=== PATIENT | female | born 1960 | race Caucasian/White ===

== ENCOUNTER 2020-11-23 09:52 | Outpatient (CLI) | payer OTHER, SELFPAY ==
--- NOTE | 2020-11-23 09:58 | MM_ITS ---
WS: [id number] BILATERAL DIGITAL SCREENING MAMMOGRAPHY WITH CAD CLINICAL INFORMATION: SCREENING HISTORY: Screening mammogram. No current complaints. COMPARISON: TECHNIQUE: Bilateral CC and MLO views. FINDINGS: Scattered fibroglandular densities bilaterally. Stable incidental intramammary lymph nodes. No suspic ious focal mass, asymmetry, calcifications, or architectural distortion. No evidence of malignancy. MM/[place] [id number] IMPRESSION: BI-RADS: 2-Benign FOLLOW UP: 1 Year Follow-up Recommend return to annual screening mammography.
== END 2020-11-23 09:53 | disposition home or self-care (01) ==
PROVIDERS: PCP Family Medicine; Visit Provider Family Medicine
DX: Z12.31 Encounter for screening mammogram for malignant neoplasm of breast (principal)
CPT/HCPCS: 77067

== ENCOUNTER 2021-12-26 16:43 | Outpatient (CLI) | payer OTHER, SELFPAY ==
--- NOTE | 2021-12-26 17:11 | XR_ITS ---
WS: [id number] XR hip LT 2-3V wo/w pel* [id number] REASON FOR EXAM: HIP PAIN, LEFT FINDINGS: No fracture or focal bone lesion. Minimal narrowing of the left hip joint space with mild subchondral sclerosis of the acetabulum with small marginal osteophyte formation. Amorphous calcifications adjacent to the greater trochanter. XR/XR hip LT 2-3V wo/w pel* [id number] IMPRESSION: Calcific tendinitis, hydroxyapatite deposition disease versus calcific trochant pamela bursitis.
== END 2021-12-26 16:44 | disposition home or self-care (01) ==
PROVIDERS: PCP Family Medicine; Visit Provider Family Medicine
DX: M25.552 Pain in left hip (principal); M65.28 Calcific tendinitis, other site
CPT/HCPCS: 73502

== ENCOUNTER 2022-04-04 11:36 | Outpatient (CLI) | payer OTHER, SELFPAY ==
--- NOTE | 2022-04-04 11:53 | XR_ITS ---
WS: [id number] XR shoulder RT min 2V* [id number] REASON FOR EXAM: Right shoulder pain FINDINGS: The acromioclavicular joint is relatively well preserved. There is subchondral sclerosis and cystic c hange with marginal osteophytosis. Glenohumeral joint is intact and relatively well-preserved. Mild subchondral sclerosis in the greater biceps tuberosity. XR/XR shoulder RT min 2V* [id number] IMPRESSION: Mild to moderate osteoarthritis in the acromioclavicular joint. Mild rotator cuff tendon arthropathy.
== END 2022-04-04 11:37 | disposition home or self-care (01) ==
LOC: RAD 11:39
PROVIDERS: PCP Family Medicine; Visit Provider Family Medicine
DX: M19.011 Primary osteoarthritis, right shoulder (principal)
CPT/HCPCS: 73030

== ENCOUNTER → 2023-09-10 10:16 | Outpatient (BNVA) | payer OTHER, SELFPAY | PROVIDERS: PCP Family Medicine; Visit Provider Family Medicine | DX: Z51.81 Encounter for therapeutic drug level monitoring (principal); Z13.220 Encounter for screening for lipoid disorders; Z13.1 Encounter for screening for diabetes mellitus; E55.9 Vitamin D deficiency, unspecified; E03.9 Hypothyroidism, unspecified | CPT/HCPCS: 80053; 80061; 82306; 83036; 84443; 85025 ==

== ENCOUNTER 2023-09-28 07:40 | Outpatient (CLI) | payer OTHER, SELFPAY ==
--- NOTE | 2023-09-28 08:00 | MR_ITS ---
WS: [id number] MRI LEFT KNEE HISTORY: Left knee pain COMPARISON: LEFT knee 08/14/2023 Anterior cruciate ligament: Intact. Posterior cruciate ligament: Intact. Medial collateral ligament: MCL is being displaced from the joint line are partially extruded meniscu s and synovial thickening. Posterior lateral corner structures: Mild increased signal in the periphery of the posterior horn. No definite tear. Medial menisci: Complex tear in the posterior horn. Radial and horizontal tears are identified within the posterior horn. Anterior horn normal. Lateral meniscus: Mild intrasubstance degeneration in the posterior horn. Extensor mechanism: Distal quadriceps tendon and patellar tendons are intact. Fluid and soft tissue: Moderate size complex suprapatellar joint effusion. Heterogeneous material in signal within the joint effusion may be from synovitis or prior hemorrhage due to the history of montse ma. Very large complex Cardenas's cyst. Osseous and articular structures: Patellofemoral compartment: Mild narrowing. No edema. Medial compartment: Mild narrowing of the medial compartment. Mild thinning and fissuring of the cart ilage. There is heterogeneous soft tissue along the medial joint line extending above and below the j oint line and displacing the MCL. This may be related to the prior recent trauma and resolving hemorr sharda or synovitis. Lateral compartment: Mild narrowing with thinning and fissuring of the cartilage. No fracture and no marrow edema. IMPRESSION: 1. Large complex suprapatellar joint effusion with edema surrounding the knee. 2. Very large complex Cardenas's cyst. 3. Complex tear posterior horn medial meniscus. Both radial and horizontal tears are present. 4. Mild displacement of the MCL from the joint line. Displacement is secondary to a very partially e xtruded meniscus with adjacent complex synovial thickening. There is heterogeneous synovial thickenin g may be posttraumatic resolving hematoma. 5. Mild tricompartmental osteoarthritis and fissuring of the cartilage.
== END 2023-09-28 07:41 | disposition home or self-care (01) ==
LOC: RAD 07:42
PROVIDERS: PCP Family Medicine; Visit Provider Family Medicine
DX: M25.562 Pain in left knee (principal)
CPT/HCPCS: 73721

== ENCOUNTER 2023-10-01 14:26 | Outpatient (CLI) | payer OTHER, SELFPAY ==
--- NOTE | 2023-10-01 14:30 | MM_ITS ---
WS: [id number] BILATERAL SCREENING DIGITAL TOMOSYNTHESIS MAMMOGRAM WITH CAD HISTORY: Screening COMPARISON: 11/23/2020 and 12/05/2018 Bilateral CC and MLO views with tomosynthesis and synthetic mammography submitted. Computer aided det ection analyzed. Breast composition: There are scattered areas of fibroglandular density. No suspicious masses, microc alcifications or architectural distortion. IMPRESSION: MM/[place] [id number] BI-RADS: 2-Benign FOLLOW UP: 1 Year Follow-up
== END 2023-10-01 14:27 | disposition home or self-care (01) ==
LOC: RAD 14:27
PROVIDERS: PCP Family Medicine; Visit Provider Family Medicine
DX: Z12.31 Encounter for screening mammogram for malignant neoplasm of breast (principal)
CPT/HCPCS: 77063; 77067

== ENCOUNTER 2023-11-07 11:58 | Outpatient (CLI) | payer OTHER, SELFPAY ==
--- NOTE | 2023-11-07 12:15 | MR_ITS ---
WS: [id number] MRI LEFT SHOULDER NONCONTRAST TECHNIQUE: Sagittal T2, coronal T1, T2 and proton density imaging. Axial gradient PDE imaging. CLINICAL INFORMATION: Shoulder pain left COMPARISON: None. FINDINGS: Moderate degenerative arthritis at the AC joint with mild edema. Slight subacromial spurring. Mild na rrowing of the subacromial space. Slight impingement distal supraspinatus. Trace subacromial subdelto id fluid. Acromion slightly impinges the distal supraspinatus with tendinopathy. No high-grade tears. Mild chronic thinning of the distal supraspinatus. Normal infraspinatus. Normal teres minor. Subscapu yenni is normal. Normal biceps tendon in the bicipital groove. Moderate to advanced degenerative narr owing at the glenohumeral articulation. Degenerative fraying of the glenoid labrum. Biceps labral anc hor appears intact. Subchondral cystic changes involving the greater tuberosity. MR/MR shoulder LT wo con* [id number] IMPRESSION: 1. Moderate degenerative arthritis AC joint with slight impingement on the dis john supraspinatus. 2. Mild tendinopathy distal supraspinatus. No high-grade rotator cuff tears. 3. Normal biceps tendon in the bicipital groove. 4. Intra-articular biceps tendon appears intact. 5. No other acute findings.
--- NOTE | 2023-11-07 13:00 | MR_ITS ---
WS: [id number] MRI RIGHT SHOULDER NONCONTRAST TECHNIQUE: Sagittal T2, coronal T1, T2 and proton density imaging. Axial gradient PDE imaging. CLINICAL INFORMATION: Right shoulder pain COMPARISON: None. FINDINGS: Advanced degenerative arthritis AC joint with subacromial spurring. Small amount of subacromial subde ltoid fluid. Chronic thinning of the distal supraspinatus with tendinopathy. Normal infraspinatus. No rmal teres minor. Normal subscapularis tendon. Normal biceps tendon in the bicipital groove. Advanced degenerative narrowing of the glenohumeral articulation. Glenoid labrum appears grossly intact with degenerative fraying. Biceps labral anchor appears intact. MR/MR shoulder RT wo con* [id number] IMPRESSION: 1. Advanced degenerative arthritis AC joint with subacromial spurring. Subacro mial and subdeltoid fluid. 2. Impingement distal supraspinatus with tendinopathy. Chronic thinning of the distal supraspinatus. 3. Rotator cuff is otherwise normal in appearance. 4. Normal biceps tendon in the bicipital groove. 5. Advanced degenerative narrowing at the glenohumeral articulation.
== END 2023-11-07 11:59 | disposition home or self-care (01) ==
LOC: RAD 11:58
PROVIDERS: PCP Family Medicine; Visit Provider Family Medicine
DX: M25.511 Pain in right shoulder (principal); M25.512 Pain in left shoulder; M19.012 Primary osteoarthritis, left shoulder; M19.011 Primary osteoarthritis, right shoulder
CPT/HCPCS: 73221

== ENCOUNTER → 2023-11-29 09:52 | Outpatient (BNVA) | payer OTHER, SELFPAY | PROVIDERS: PCP Family Medicine; Referring Provider Family Medicine; Visit Provider Student in an Organized Health Care Education/Training Program | DX: S83.242A Other tear of medial meniscus, current injury, left knee, initial encounter (principal); M71.22 Synovial cyst of popliteal space [Baker], left knee; M65.862 Other synovitis and tenosynovitis, left lower leg | CPT/HCPCS: 73560; 73565 ==

== ENCOUNTER 2023-12-26 13:25 | Day surgery (SDC) | payer OTHER, SELFPAY ==
[2023-12-26] VITALS (10 sets, daily range): BP systolic 135–158; BP diastolic 66–95; PULSE 61–74; RESP 12–22; TEMP 36.1–36.6; O2SAT 91–100; BMI 28.8
--- NOTE | 2023-12-26 13:55 | W.PM.OPSUD ---
Surgery/Procedure H&P Update DATE OF PROCEDURE: December 26, 2023 DATE H&P PERFORMED: 11/29/23 H&P UPDATE INFORMATION: I have reviewed H&P completed within last 30 days, I have examined patient prior to procedure and No changes to prior documentation PREOP DIAGNOSIS: Left knee medial meniscus tear, synovitis PRIMARY INDICATION FOR PROCEDURE: Left knee medial meniscus tear, synovitis PLANNED PROCEDURE: Operation Date: 12/26/23 15:00 Proposed Procedures p Knee Arthroscopy Knee Arthroscopy w/ Medial Menisectomy vs repair(Left) - DO samy Oshea Synovectomy(Left) - Carlos Cody DO
[2023-12-26] MEDS: acetaminophen 1,000 MG/100 ML PIGGYBACK 400 MG IV (14:01)
[2023-12-26] MEDS: ketorolac 30 mg/mL INJ IVP (14:01)
[2023-12-26] MEDS: sodium chloride 0.9% 1,000 ML 30 ML IV (14:01)
[2023-12-26] MEDS: scopolamine 1.5 Patch 1 PATCH TRANSDERMA (14:03)
--- NOTE | 2023-12-26 14:03 | ANES.PREANE2 ---
Pre-Anesthetic Assessment Height/Weight: Height 1.73 m Weight 86.183 kg Temp Pulse Resp BP Pulse Ox O2 Del Method 97.6 F 74 17 135/95 99 Room Air 12/26/23 13:39 12/26/23 13:39 12/26/23 13:39 12/26/23 13:39 12/26/23 13:39 12/26/23 13:40 Preop Diagnosis: Left knee medial meniscus tear, synovitis Operation Date: 12/26/23 15:00 Proposed Procedures p Knee Arthroscopy Knee Arthroscopy w/ Medial Menisectomy vs repair(Left) - Carlos Cody, DO s Synovectomy(Left) - Carlos Cody, DO Familial anesthetic complications: None Was Beta Aryan taken within 24 hours: N/A Was Clonidine taken within 24 hours: N/A Last intake: Intake Last Liquid Date 12/26/23 Last Liquid Time 08:30 Last Solid Date 12/25/23 Last Solid Time 19:00 Social No alcohol and No tobacco Exam alert, oriented x 3, clear to auscultation bilaterally and regular rate & rhythm Airway Mallampati: Class I Dentition: partials CV/HEM Hypertension GI Gastroesophageal Reflux Disease Anesthetic Plan ASA status: 2 Anesthesia: General Risk of > 500 ml blood loss (7ml/kg in children): No Medications/Allergies Home Medications Medication Instructions Recorded Confirmed Last Taken Type albuterol sulfate 90 mcg/actuation See Rx Instructions .Route 04/10/22 12/25/23 Unknown Rx aerosol inhaler .COMPLEX #8.5 grams fluticasone 500 mcg-salmeterol 50 1 inh inhalation BID #60 ea 12/13/22 12/25/23 Unknown Rx mcg/dose blistr powdr for inhalation (Advair Diskus) epinephrine 0.3 mg/0.3 mL 0.3 mg (0.3 mL) IM ONCE PRN 02/12/23 12/25/23 Unknown Rx injection, auto-injector anaphylaxis #2 ea multivitamin 1 tab PO DAILY 09/10/23 12/25/23 12/25/23 History levocetirizine 5 mg tablet 5 mg PO DAILY 12/25/23 12/25/23 12/25/23 History lisinopril 20 20 - 25 tab PO DAILY 12/25/23 12/25/23 12/25/23 History mg-hydrochlorothiazide 25 mg tablet omeprazole 40 mg capsule,delayed 20 mg PO DAILY 12/25/23 12/25/23 12/25/23 History release aspirin 81 mg capsule 81 mg PO BID 14 days #28 caps 12/26/23 Unknown Rx hydrocodone 5 mg-acetaminophen 325 1 tab PO Q6H PRN pain 5 days #20 12/26/23 Unknown Rx mg tablet tabs ondansetron 4 mg disintegrating 4 mg PO Q8H PRN nausea and 12/26/23 Unknown Rx tablet vomiting 3 days #9 tabs Allergies Allergy/AdvReac Type Severity Reaction Status Date / Time penicillin V Allergy Severe ALGY-Rash Verified 12/26/23 13:34 Sulfa (Sulfonamide Allergy Mild Unknown Verified 12/26/23 13:34 Antibiotics) chlorhexidine Allergy ALGY-Rash Verified 12/26/23 13:34 isopropyl alcohol Allergy ALGY-Rash Verified 12/26/23 13:34 [From ChloraPrep Clear] [facility] Anesthesia Medical History Osteopenia Environmental allergies [place], bee sting Surgical History History of pilonidal cyst History of appendectomy H/O section S/P surgery on nasal septum Family History Mother Congenital malformation of kidney CLL (chronic lymphocytic leukemia) Glaucoma COPD (chronic obstructive pulmonary disease) Father Hypertension Congestive heart failure (CHF) h/o [place] Brother Graves disease Social History Smoking and tobacco/nicotine status: former use of tobacco/nicotine Alcohol intake: current Alcohol intake frequency: few times a week Substance/Drug Use: never 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
[2023-12-26] MEDS: clindamycin 900 MG/50 ML PREMIX 100 MG IV (14:20)
[2023-12-26] MEDS: lidocaine-epi 1% 20 mL INJ 40 ML INJECTION (14:50)
--- NOTE | 2023-12-26 15:40 | P.OP_ITS ---
Operative Report Date of procedure: December 26, 2023 Surgeon: Carlos Cody DO Swimming Pool Installer And Servicer: Aniceto Cody PA-C: PA was necessary for assistance in this case with leg positioning assistance with instrumentation and wound closure and dressing application. Procedure: Preoperative diagnosis : left knee medial meniscus tear, synovitis Post-op?diagnosis: Left?knee?medial meniscus tear Left?knee?extensive synovitis Procedure done: Left?knee?diagnostic and surgical arthroscopy partial medial meniscectomy Left?knee?diagnostic and surgical arthroscopy with extensive synovectomy of the medial lateral and patellofemoral compartments Surgeon: Carlos Cody DO Estimated blood loss: 5 Tourniquet: No tourniquet was used IV fluids: See anesthesia record Complications: None Findings: See?operative report narrative Condition: stable Disposition: same day Brief History: Patient is a 63-year-old female with Left?knee?pain.? Patient has failed conservative treatment who has been worked up for Left??knee?pain in the outpatient setting. MRI findings consistent with tear of the medial meniscus. talked in the office about treatment?options patient would like to proceed with a Left?knee?diagnostic and surgical arthroscopy with partial medial meniscectomy vs repair.? Patient understand the ins and outs of the procedure the risk benefits complication alternatives to treatment?options.? Understanding risk of surgery pt agree to proceed with surgical intervention.? Understanding this and patient agree to proceed with surgical intervention all questions answered. Procedure: Patient seen and evaluated in the preoperative holding area.? Consent was reviewed and signed with patient.? Correct extremity was then marked.? Patient seen evaluated Anesthesia Department once cleared for surgery patient was taken back to the?operative suite.? Patient was transported onto the OR table in supine position.? All bony prominences well-padded patient was appropriate secured to the bed.? Once appropriately anesthetized a nonsterile tourniquet was applied to the Left thigh.? The Left lower extremity was then prepped and draped in standard orthopedic fashion.? Final timeout performed.? Patient received appropriate preoperative antibiotics. Patient received local anesthetic of lidocaine with epinephrine into the joint as well as around the portal sites.? No tourniquet was inflated A standard 2 portal vertical incision diagnostic and surgical arthroscopy of the Left?knee?was performed in standard fashion.? Small stab incision made in the inferolateral portal introduced trocar and arthroscope into the suprapatellar pouch.? Suprapatellar pouch was subsequently visualized and found to have significant synovitis but no loose bodies.? Patient had noticeable significant inflamed infrapatellar fat pad and thickening hypertrophic within the patellofemoral compartment.? ?The medial gutter was free of loose bodies I then introduced the arthroscope into the medial compartment.? Within the medial compartment I then established my inferior medial working portal utilizing spinal needle outside in technique.? Once established I then visualized our articular cartilage of the medial compartment with a valgus stress.? 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 Next I inspected the meniscus.? With an arthroscopic probe was utilized to visual? all aspects of the meniscus.? Meniscal root was found to be intact.? Meniscus was found to be torn at the body to posterior horn junction.? I then subsequently introduced a basket forceps as well as arthroscopic shaver to perform a partial medial meniscectomy to stable meniscal tissue and then utilized a thermal wand to anneal the edges.? Next, I then performed a synovectomy of the medial compartment.? No chondroplasty was performed.? This completed medial compartment work. Next a introduced the arthroscope to the intercondylar notch.? PCL and ACL were intact. patient had significant thickening of the infrapatellar fat pad spanning into the medial and lateral compartments.? I then performed an extensive synovectomy with the arthroscopic shaver of the patellofemoral medial and lateral compartments as well as the intercondylar notch. Next I introduced the arthroscope into the lateral compartment the lateral compartment was found to have grade 1-2 chondromalacia.? Lateral meniscus was found to be intact.? The root was intact.? Given the grade 1-2 chondromalacia there is no unstable cartilage pieces to perform chondroplasty.? This completed my work of the lateral compartment and then performed a synovectomy of the lateral compartment.? Next of the arthroscope was placed into the lateral gutter and this was free of loose bodies.? Finally I reintroduced the arthroscope into the patellofemoral compartment.? The patellofemoral was found to have grade 1-2 chondromalacia of the patellofemoral compartment.? At this point I utilized arthroscopic shaver as well as thermal wand to perform extensive synovectomy of the patellofemoral compartment. This completed my work of the patellofemoral space.? I then switch my portal sites to the medial working portal.? Completed the rest of my synovectomy and the rest of my examination arthroscopy was normal. All fluid was suctioned from the joint.? ?All instruments were withdrawn.? Portal sites were closed with interrupted nylon suture.? portal sites were then covered with with Xeroform 4 x 4's ABD Curlex and Charlie wrap.? Patient was then subsequently awakened from anesthesia and taken to PACU in stable condition. Disposition: Patient taken to PACU in stable condition recovering well.? Will receive appropriate discharge structure as well as pain medication postoperatively as well as? DVT prophylaxis.we will have patient follow-up with us in the office in 2 weeks.? We will weightbearing as tolerated to the Left lower extremity.? Patient understands and agrees with current plan.? All questions answered.
--- NOTE | 2023-12-26 15:41 | P.BOP_ITS ---
Date of Procedure: [December 26, 2023] Surgeon: [Dr. Cody DO] Attending Ambulatory Care(s): [Aniceto Cody PA-C] Procedure(s) performed: [Right knee diagnostic and surgical arthroscopy Partial medial meniscectomy Extensive synovectomy] Findings of the procedure(s): [Right knee synovitis and partial medial meniscus tear] Estimated blood loss: [5 mL] Specimen(s) removed: [N/A] Post-operative diagnosis: [Right knee synovitis and partial medial meniscus tear]
--- NOTE | 2023-12-26 15:45 | PM.PACU ---
PACU note Narrative: Patient is a 63-year-old female that just underwent left knee diagnostic and surgical arthroscopy. Pt transferred to PACU in stable condition. Dressing is dry. pt is awake and alert. pt can wiggle toes and plantarflex and dorsiflex foot. pt able to perform straight leg raise, Femoral nerve intact. Distal pulses are palpable toes are warm and well-perfused. Cap refill is normal and under 2 seconds. Sensation to foot is intact. Pain is controlled. Exam: awake Disposition: discharged
[2023-12-26] MEDS: ondansetron 2 mg/ML SDV 2 mL 4 MG IVP (16:31)
[2023-12-26] MEDS: diphenhydrAMINE 50 mg/mL SDV 1mL 12.5 MG IVP (16:49)
--- NOTE | 2023-12-26 17:10 | ANE.PACU2 ---
Inpatient post-anesthesia follow up: Airway intact: Yes Vital signs: Temperature 97.8 F Pulse Rate 61 Respiratory Rate 17 Blood Pressure 154/74 Pulse Oximetry 91 Oxygen Delivery Me thod Room Air Oxygen Flow Rate 8 Fraction of Inspir ed Oxygen Hydration adequate: Yes Nausea and vomiting: No Pain level: 1 Mental status: Baseline
== END 2023-12-26 17:10 | disposition home or self-care (01) ==
PROVIDERS: PCP Family Medicine; Visit Provider Student in an Organized Health Care Education/Training Program
PROC: (CPT 29870; principal; 2023-12-26 14:50)
PROC: (CPT 29876; 2023-12-26 14:50)
DX: S83.242A Other tear of medial meniscus, current injury, left knee, initial encounter (principal); X58.XXXA Exposure to other specified factors, initial encounter; M65.9 Synovitis and tenosynovitis, unspecified; I10 Essential (primary) hypertension; K21.9 Gastro-esophageal reflux disease without esophagitis; Z79.82 Long term (current) use of aspirin; Z87.891 Personal history of nicotine dependence
CPT/HCPCS: 29876; 29881; J0131; J1200; J1885; J2250; J2405; J2704; J3010; J3490; J7030

== ENCOUNTER → 2024-03-04 15:15 | Outpatient (BNVA) | payer OTHER, SELFPAY | PROVIDERS: PCP Family Medicine; Visit Provider Student in an Organized Health Care Education/Training Program | DX: M75.42 Impingement syndrome of left shoulder; M19.012 Primary osteoarthritis, left shoulder | CPT/HCPCS: 73030 ==

== ENCOUNTER → 2024-10-17 09:12 | Outpatient (BNVA) | payer OTHER, SELFPAY | PROVIDERS: PCP Family Medicine; Visit Provider Physician Assistant | DX: S62.102A Fracture of unspecified carpal bone, left wrist, initial encounter for closed fracture (principal); S52.502A Unspecified fracture of the lower end of left radius, initial encounter for closed fracture; S89.92XA Unspecified injury of left lower leg, initial encounter; X58.XXXA Exposure to other specified factors, initial encounter; M25.562 Pain in left knee; Z98.890 Other specified postprocedural states; Y93.68 Activity, volleyball (beach) (court) | CPT/HCPCS: 73110; 73560; 73565 ==

== ENCOUNTER 2024-10-17 10:09 | Outpatient (CLI) | payer OTHER, SELFPAY | END 2024-10-17 10:10 | disposition home or self-care (01) | LOC: SPT 10:10 | PROVIDERS: PCP Family Medicine; Visit Provider Physician Assistant | DX: Z46.89 Encounter for fitting and adjustment of other specified devices (principal); S52.502D Unspecified fracture of the lower end of left radius, subsequent encounter for closed fracture with routine healing; X58.XXXD Exposure to other specified factors, subsequent encounter | CPT/HCPCS: L3982 ==

== ENCOUNTER 2024-10-20 06:54 | Outpatient (CLI) | payer OTHER, SELFPAY ==
--- NOTE | 2024-10-20 07:15 | MR_ITS ---
WS: [id number] MRI LEFT KNEE NONCONTRAST TECHNIQUE: Axial PD, coronal PD fat sat, coronal PD, sagittal PD, and sagittal PD fat-sat images obtained. CLINICAL INFORMATION: injury of left knee COMPARISON: MRI 09/28/2023 FINDINGS: Heterogeneous signal involving ACL is new from previous suspicious for partial intrasubstance tear with T2 signal abnormality. PCL appears intact. Distal quadriceps and patella tendons are intact. Moderate to advanced tricompartmental arthritis. Moderate suprapatellar effusion. Grade II-III chondromalacia patella worse involving the lateral patellar facet. Previously described popliteal cyst has improved with only a small residual popliteal cyst today measuring 1.3 x 0.8 cm Complex tears involving the posterior horn lateral meniscus extending to the meniscal root and capsular insertion suspicious for posterolateral corner injury. Edema extending along the fibular head and arcuate ligaments. Suspected partial tear of the popliteus with fluid along the popliteal fibers. Partial tear of the proximal lateral collateral ligament. Biceps femoris appears intact. Contusion extending along the posterior lateral tibial plateau. Additional horizontal tear involving the posterior horn medial meniscus. Medial collateral ligament appears intact. MR/MR knee LT wo con* [id number] IMPRESSION: 1. Suspected partial intrasubstance tear involving the ACL 2. Complex tears involving the medial and lateral meniscus with lateral capsul ar tear involving the posterior horn lateral meniscus 3. Fluid and edema along the arcuate ligament and fibular head with suspected partial tear of the popliteus suspicious for posterolateral corner injury. 4. Partial tear of the proximal lateral collateral ligament with increased sig nal. 5. Previously described popliteal cyst has improved described above 6. Contusion involving the posterolateral tibial plateau. Outbridge grading: grade III: partial-thickness cartilage loss with focal ulcer ation
== END 2024-10-20 06:55 | disposition home or self-care (01) ==
PROVIDERS: PCP Family Medicine; Visit Provider Physician Assistant
DX: Z98.890 Other specified postprocedural states (principal); R93.6 Abnormal findings on diagnostic imaging of limbs; S83.282A Other tear of lateral meniscus, current injury, left knee, initial encounter; S83.242A Other tear of medial meniscus, current injury, left knee, initial encounter; X58.XXXA Exposure to other specified factors, initial encounter; S83.412A Sprain of medial collateral ligament of left knee, initial encounter; M71.22 Synovial cyst of popliteal space [Baker], left knee; S80.02XA Contusion of left knee, initial encounter; M13.862 Other specified arthritis, left knee; M25.462 Effusion, left knee; M22.42 Chondromalacia patellae, left knee
CPT/HCPCS: 73721

== ENCOUNTER → 2024-10-22 10:00 | Outpatient (BNVA) | payer OTHER, SELFPAY | PROVIDERS: PCP Family Medicine; Visit Provider Student in an Organized Health Care Education/Training Program | DX: S52.502A Unspecified fracture of the lower end of left radius, initial encounter for closed fracture (principal); S83.282A Other tear of lateral meniscus, current injury, left knee, initial encounter; S83.242A Other tear of medial meniscus, current injury, left knee, initial encounter; X58.XXXA Exposure to other specified factors, initial encounter; Z46.89 Encounter for fitting and adjustment of other specified devices | CPT/HCPCS: 73110 ==

== ENCOUNTER 2024-10-22 15:06 | Outpatient (CLI) | payer OTHER, SELFPAY | END 2024-10-22 15:07 | disposition home or self-care (01) | LOC: SPT 15:07 | PROVIDERS: PCP Family Medicine; Visit Provider Student in an Organized Health Care Education/Training Program | DX: Z46.89 Encounter for fitting and adjustment of other specified devices (principal); S89.92XD Unspecified injury of left lower leg, subsequent encounter; X58.XXXD Exposure to other specified factors, subsequent encounter | CPT/HCPCS: 97760; L1832 ==

== ENCOUNTER → 2024-10-29 14:38 | Outpatient (BNVA) | payer OTHER, SELFPAY | PROVIDERS: PCP Family Medicine; Visit Provider Student in an Organized Health Care Education/Training Program | DX: S52.502A Unspecified fracture of the lower end of left radius, initial encounter for closed fracture (principal); S83.242A Other tear of medial meniscus, current injury, left knee, initial encounter; S83.282A Other tear of lateral meniscus, current injury, left knee, initial encounter; S83.422A Sprain of lateral collateral ligament of left knee, initial encounter; X58.XXXA Exposure to other specified factors, initial encounter | CPT/HCPCS: 73110 ==

== ENCOUNTER 2024-11-03 10:10 | Day surgery (SDC) | payer OTHER, SELFPAY ==
[2024-11-03] VITALS (15 sets, daily range): BP systolic 134–195; BP diastolic 67–97; PULSE 63–103; RESP 10–20; TEMP 36.1–36.6; O2SAT 90–100; BMI 32.1
--- NOTE | 2024-11-03 | XR_ITS ---
WS: [id number] XR wrist LT 2V [id number] REASON FOR EXAM: ANGEL PICS FINDINGS: Plate and screw fixation of comminuted transverse fracture of the distal radial metaphysis. Surgical appliances are intact and in proper position and alignment. Fracture fragments are in good apposition and alignment. XR/XR wrist LT 2V [id number] IMPRESSION: Reduction and fixation of left wrist fracture as above.
--- NOTE | 2024-11-03 10:55 | ANES.PREANE2 ---
Pre-Anesthetic Assessment Height/Weight: Height 5 ft 8 in Preop Diagnosis: Radius fracture Operation Date: 11/03/24 12:05 Proposed Procedures p Knee Arthroscopy w/ Medial and Lateral Menisectomy Vs. Repair(Left) - Carlos Cody DO s ORIF Wrist ORIF Distal Radius(Left) - Carlos Cody DO Was Beta Aryan taken within 24 hours: N/A Was Clonidine taken within 24 hours: N/A Social No alcohol and No tobacco Exam alert, oriented x 3, clear to auscultation bilaterally and regular rate & rhythm Airway Submandibular: within normal limits Cervical ROM: within normal limits Mallampati: Class III Dentition: full Anesthetic Plan ASA status: 2 Anesthesia: General and Regional (specify below) Other: No prior issues with anesthesia NPO since yesterday evening History of hypertension, on lisinopril?HCTZ METs greater than 4 Plan for general anesthesia with preop upper extremity nerve block Medications/Allergies Home Medications ?Medication ?Instructions ?Recorded ?Confirmed ?Last Taken ?Type calcium glucarate 500 mg capsule 1 tab-cap PO DAILY 03/04/24 10/31/24 11/02/24 History coenzyme Q10 75 mg capsule (Ultra 75 mg PO DAILY 03/04/24 10/31/24 11/02/24 History CoQ10) glucosamine sulfate 500 mg tablet 500 mg PO DAILY 03/04/24 10/31/24 11/02/24 History (Glucosamine) mecobalamin (vitamin B12) 1,000 1,000 mcg PO DAILY 03/04/24 10/31/24 10/31/24 History mcg chewable tablet multivitamin 1 tab PO DAILY 03/04/24 10/31/24 10/31/24 History ubidecarenone-omega 3-vit E 25 1 cap PO DAILY 03/04/24 10/31/24 11/02/24 History mg-150 (90-60) mg-200 unit capsule (Co [id number] E-Fish Oil) left volar fast form #1 ea 10/17/24 10/29/24 Unknown Rx Left Knee Colbert Brace #1 ea 10/22/24 10/29/24 Unknown Rx albuterol sulfate 90 mcg/actuation 1 - 2 puff inhalation .Q4-6H PRN 10/31/24 10/31/24 Unknown History aerosol inhaler Shortness Of Breath Or Wheezing epinephrine 0.3 mg/0.3 mL 0.3 mg IM PRN PRN Anaphylaxis 10/31/24 10/31/24 Unknown History injection, auto-injector ibuprofen 600 mg tablet 600 mg PO Q8H PRN Pain 10/31/24 10/31/24 11/02/24 History levocetirizine 5 mg tablet 5 mg PO DAILY 10/31/24 10/31/24 11/02/24 History lisinopril 20 1 tab PO DAILY 10/31/24 10/31/24 11/02/24 History mg-hydrochlorothiazide 25 mg tablet omeprazole 40 mg capsule,delayed 40 mg PO DAILY 10/31/24 10/31/24 11/02/24 History release Allergies Allergy/AdvReac Type Severity Reaction Status Date / Time penicillin V Allergy Severe ALGY-Rash Verified 10/31/24 12:01 Sulfa (Sulfonamide Allergy Mild Unknown Verified 10/31/24 12:01 Antibiotics) chlorhexidine Allergy ALGY-Rash Verified 10/31/24 12:01 isopropyl alcohol (From Allergy ALGY-Rash Verified 10/31/24 12:01 ChloraPrep Clear) [facility] Anesthesia Medical History Osteopenia Environmental allergies [place], bee sting Surgical History History of pilonidal cyst History of appendectomy H/O section S/P surgery on nasal septum Family History Mother Congenital malformation of kidney CLL (chronic lymphocytic leukemia) Glaucoma COPD (chronic obstructive pulmonary disease) Father Hypertension Congestive heart failure (CHF) h/o [place] Brother Graves disease Social History Smoking and tobacco/nicotine status: former use of tobacco/nicotine Alcohol intake: current Alcohol intake frequency: few times a week Substance/Drug Use: never 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
[2024-11-03] MEDS: sodium chloride 0.9% 1,000 ML 30 ML IV (11:10)
[2024-11-03] MEDS: acetaminophen 1,000 MG/100 ML PIGGYBACK 400 MG IV (11:11)
[2024-11-03] MEDS: ketorolac 30 mg/mL INJ IVP (11:11)
--- NOTE | 2024-11-03 11:58 | W.PM.OPSUD ---
Surgery/Procedure H&P Update DATE OF PROCEDURE: November 03, 2024 DATE H&P PERFORMED: 10/29/24 H&P UPDATE INFORMATION: I have reviewed H&P completed within last 30 days, I have examined patient prior to procedure and No changes to prior documentation PREOP DIAGNOSIS: Left knee medial and lateral meniscus tears, left distal radius fracture PRIMARY INDICATION FOR PROCEDURE: Left knee medial and lateral meniscus tears, left distal radius fracture dorsal angulation PLANNED PROCEDURE: Operation Date: 11/03/24 12:05 Proposed Procedures p Knee Arthroscopy w/ Medial and Lateral Menisectomy Vs. Repair(Left) - DO samy Oshea ORIF Wrist ORIF Distal Radius(Left) - Carlos Cody DO
--- NOTE | 2024-11-03 12:12 | ANES.PROC ---
Anesthesia Procedures Procedure/Date: 11/03/24 Nerve Block ^: Nerve Block 1: Main Anesthesia: other (100 micrograms fentanyl) Time Out Performed: Yes Consent: requested by attending/covering physician and from patient Nerve block location: supraclavicular Anesthesia monitors applied: pulse oximetry, EKG, BP cuff and oxygen Nerve block position: supine Anesthetic Used: ropivicaine 0.5% Amount of anesthesia used (mL): 25 Ultrasound used to: recognize landmarks Nerve Stimulator Used?: Yes Interscalene/Femoral BLK: other needle (pjunk 4inch) Injection: neg aspiration of heme Patient Tolerated Procedure: well Complications: none Additional Comments: Decadron 4 mg added to block
[2024-11-03] MEDS: clindamycin 900 MG/50 ML PREMIX 100 MG IV (12:30)
[2024-11-03] MEDS: lidocaine-epi 2% PF 1:200,000 20 mL SDV XX (13:38)
--- NOTE | 2024-11-03 16:22 | PM.PACU ---
PACU note Narrative: Patient is a 64-year-old female just underwent a left wrist ORIF and left knee arthroscopy. Patient transferred to PACU in stable condition. Patient's splint on left wrist is dry and in place. Fingers are warm and well-perfused. Normal cap refill under 2 seconds. Patient's left leg is in the [place] brace and bandage on the leg is dry and in place. Pedal pulse 2+ and normal cap refill in toes. Patient has sensation to foot intact. She is able dorsiflex plantarflex foot. She can wiggle toes. She is able to perform straight leg raise. Exam: awake Disposition: discharged
--- NOTE | 2024-11-03 16:31 | P.BOP_ITS ---
Date of Procedure: 11/03/2024 Surgeon: Carlos Cody DO [employer](s): Aniceto Cody PA-C Procedure(s) performed: Left knee diagnostic and surgical arthroscopy with partial medial meniscectomy Left knee diagnostic and surgical arthroscopy with partial lateral meniscectomy Left knee diagnostic and surgical arthroscopy with extensive synovectomy Left knee diagnostic and surgical arthroscopy with ACL debridement Left distal radius open reduction internal fixation (greater than 4-part intra-articular) with a volar plate and radial column plate Findings of the procedure(s): Patient found to have medial lateral meniscus tears as well as extensive synovitis and partial tearing of the ACL underwent procedure for left knee as planned without issues or complications. Patient then subsequently had procedure broken down dressings applied and then a new set up for the left distal radius fracture. Patient subsequently underwent this procedure was found to have a significantly comminuted intra-articular fracture underwent ORIF with satisfactory reduction and correction of patient's dorsal angulation during last locking screw proximally it was noted there was a nondisplaced crack propagating from the oblong cortical screw this appeared to communicate with the K wire and into the locking screw there was a nondisplaced crack that just went just proximal to the plate at this point in time I had satisfactory reduction of the joint and if I were to remove all this we would lose all reduction and loss of fracture and screw purchase as a result I did doing a dual plate select appropriate length screw and achieved 3 screws distally and 4 screws proximally where I was able to lag the fracture site and have added fixation proximal to my plate. This had excellent fixation was able to take through range of motion DRUJ joint was stable and fracture stable final x-rays were taken and patient was then placed in a sugar-tong splint to avoid excessive rotation and torsional force. Will continue be nonweightbearing and maintain sugar-tong splint until follow-up. Patient family updated postoperatively. All questions answered. Estimated blood loss: 15 mL Specimen(s) removed: None Post-operative diagnosis: Left knee medial meniscus tear, lateral meniscus tear, extensive synovitis, partial ACL tear, 4 part intra-articular distal radius fracture with intraoperative nondisplaced fracture during plate application
--- NOTE | 2024-11-03 16:37 | PM.OP ---
Operative Report Date of procedure: November 03, 2024 Surgeon: Carlos Cody DO Procedure: Preop Diagnosis ?Left knee medial and lateral meniscus tears, left distal radius fracture dorsal angulation Post-op diagnosis: Left knee medial meniscus tear, lateral meniscus tear, extensive synovitis, partial ACL tear, 4 part intra-articular distal radius fracture with intraoperative nondisplaced fracture during plate application Procedure done: Left knee diagnostic and surgical arthroscopy with partial medial meniscectomy Left knee diagnostic and surgical arthroscopy with partial lateral meniscectomy Left knee diagnostic and surgical arthroscopy with extensive synovectomy Left knee diagnostic and surgical arthroscopy with ACL debridement Left distal radius open reduction internal fixation (greater than 4-part intra-articular) with a volar plate and radial column plate Implants: ?Arthrex left 3-hole standard volar locking plate Combination of locking and nonlocking screws 2.7 mm?distal Combination of locking and nonlocking screws 3.5 mm proximal Unique 10 hole 2.7 mm plate combination of locking and nonlocking 2.7 millimeter screws Surgeon: Carlos Cody DO Anesthesia: General and nerve Block (Regional) Estimated blood loss: 15 mL Tourniquet time: Left upper extremity tourniquet 1 hour and 50 minutes IV fluids: 1500 mL Complications: No complication with left knee arthroscopy procedure, while fixation of the left distal radius was performed in locking screws place there was an apparent nondisplaced fracture that longitudinally that cracked communicating the lag screw the K wire site and the most proximal locking screw this did propagate to roughly 1.5 cm and was incomplete just proximal to the plate. This was then fixed with an additional radial column plate with 3 screws above the below fracture for fixation as well as additional lag screw through the plate. Findings: See operative report narrative Condition: stable Disposition: same day Brief History: Patient is a 64-year-old female who presented to my office for a left?distal?radius?fracture with progressive dorsal angulation with comminution and shortening as well as patient had injury to the left knee this all occurred during a volleyball injury.? Patient had MRI which shows sprain of the posterior lateral corner and of the LCL as well as the medial and lateral meniscus tearing as well as partial ACL tearing. Patient this point in time given her progressing dorsal angulation of the left distal radius fracture would recommend surgical intervention given she has complex tears in the medial and lateral meniscus we talked about this in detail and through shared decision making she like to pursue surgical intervention for both of these of her left distal radius open reduction internal fixation as well as a left knee diagnostic and surgical arthroscopy with partial medial meniscectomy versus repair, partial lateral meniscectomy versus repair. Once again we detailed the ins and outs procedure risk benefits complication alternatives of surgery and through shared decision making patient elects proceed with surgical intervention. All questions answered at this time. Procedure: Patient seen and evaluated in the preoperative holding area.? Consent reviewed and signed with patient.? Correct extremities were marked and consent was reviewed and signed.? Patient was seen and evaluated by anesthesia department.? Underwent regional anesthesia to the left upper extremity.. Once cleared for surgery pt was taken back to the operative suite.? Patient was then transported into the operative suite and placed on the OR table. All bony prominences well-padded patient was appropriate secured to bed in supine position.? We plan to proceed with the left knee arthroscopy first. Once appropriately anesthetized a nonsterile tourniquet was applied to the left thigh.? The left lower extremity was then prepped and draped in standard orthopedic fashion.? Final timeout performed.? Patient received appropriate preoperative antibiotics. Patient received local anesthetic of lidocaine with epinephrine into the joint as well as around the portal sites.? No tourniquet was inflated A standard 2 portal vertical incision diagnostic and surgical arthroscopy of the left?knee?was performed in standard fashion.? Small stab incision made in the inferolateral portal introduced trocar and arthroscope into the suprapatellar pouch.? Suprapatellar pouch was subsequently visualized and found to have significant synovitis but no loose bodies.? Patient had noticeable significant inflamed infrapatellar fat pad and thickening hypertrophic within the patellofemoral compartment.? ?The medial gutter was free of loose bodies I then introduced the arthroscope into the medial compartment.? Within the medial compartment I then established my inferior medial working portal utilizing spinal needle outside in technique.? Once established I then visualized our articular cartilage of the medial compartment with a valgus stress.? 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 Next I inspected the meniscus.? With an arthroscopic probe was utilized to visual? all aspects of the meniscus.? Meniscal root was found to be intact.? Meniscus was found to be complex tear at the body to posterior horn junction.? I then subsequently introduced a basket forceps as well as arthroscopic shaver to perform a partial medial meniscectomy to stable meniscal tissue and then utilized a thermal wand to anneal the edges.? Next, I then performed a synovectomy of the medial compartment.? There is no significant areas of unstable chondral tissue.? This completed medial compartment work. Next a introduced the arthroscope to the intercondylar notch.? PCL was intact. The ACL did have partial tearing at the distal anterior fibers this was then subsequently gently debrided the rest of the ACL was intact.. patient had significant thickening of the infrapatellar fat pad spanning into the medial and lateral compartments.? I then performed an extensive synovectomy with the arthroscopic shaver of the patellofemoral medial and lateral compartments as well as the intercondylar notch. Advance the?scope?into the retrocruciate space and no loose bodies were found. Next I introduced the arthroscope into the lateral compartment the lateral compartment was found to have grade 2 chondromalacia.? Lateral meniscus was found to be complex tear at the posterior horn and body. Decision was then made for a partial lateral meniscectomy. This was then subsequently performed with our arthroscopic shaver, basket forceps and then utilized thermal wand to kneel the edges to stable meniscal tissue. I then utilized a probe to assess the rest of the meniscus was intact. There is no appreciable meniscal separation the popliteus tendon did appear to be intact with no evidence of tear or instability. The root was intact.? Given the grade II chondromalacia there is no unstable cartilage pieces to perform chondroplasty.? This completed my work of the lateral compartment and then performed a synovectomy of the lateral compartment.? Next of the arthroscope was placed into the lateral gutter and this was free of loose bodies.? Finally I reintroduced the arthroscope into the patellofemoral compartment.? The patellofemoral was found to have grade 2-3 chondromalacia of the patellofemoral compartment.? No unstable articular tissue or signs although chondroplasty performed. At this point I utilized arthroscopic shaver as well as thermal wand to perform extensive synovectomy of the patellofemoral compartment. This completed my work of the patellofemoral space.? I then switch my portal sites to the medial working portal.? Completed the rest of my synovectomy and the rest of my examination arthroscopy was normal. All fluid was suctioned from the joint.? ?All instruments were withdrawn.? Portal sites were closed with interrupted nylon suture.? portal sites were then covered with with Xeroform 4 x 4's ABD Curlex and Charlie wrap. Patient was then placed in a [place] brace locked in full extension. All drapes were then subsequently taken down and the bed was then turned perpendicular. We then subsequently proceeded with the left distal radius ORIF. An armboard was applied to the left upper extremity.? The left upper extremity had a nonsterile tourniquet applied.? Patient subsequently was then prepped and draped in standard orthopedic fashion.. Patient continue with anesthesia per the anesthesia department. A second timeout was performed.? Patient received appropriate perioperative antibiotics. Esmarch was used exsanguinate the left upper extremity and tourniquet was insufflated to 250 mmHg. A standard modified FCR volar approach was performed to the left?distal?radius.? Sharp scalpel incision through skin and subcutaneous tissue.? I then switched to Littler dissection scissors identify the FCR tendon releases out of the sheath both proximally and?distally mobilized the tendon ulnarly and then subsequently incised the floor of the FCR tendon sheath with care to just incise the floor.? I then bluntly sweep the FPL tendon muscle belly ulnarly and placed blunt self-retaining retractor.? At this point time I direct visualization of the pronator quadratus which was incised in standard L fashion off the radial and?distal?border in the?distal?radius?and fracture site was scraped clean of interposed muscle belly.? I then identified the greater than 4 part intra-articular?distal?radius?fracture. This is much more comminuted once identified intraoperatively. This was subsequently opened above and freed of interposing muscle belly as well as periosteum and fracture hematoma.? I did have to utilize my [place] which was placed through the fracture pattern and disengage the fracture and performed manual manipulation and anatomic reduction of the?distal?radius?fracture.? ?Once satisfied with reduction and had appropriate anatomic reduction of the volar cortex.? This was confirmed with mini C arm in multiple orthogonal imaging.? At this point time? I selected a Arthrex anatomic?distal?radius?plate utilizing a standard 3-hole plate which would have appropriate spread?distally.? This was then placed up to the?distal?radius?while maintaining my reduction, pins were placed?distally and proximally to confirm appropriate placement of the plate along the?distal?radius.? Minor adjustments were made and once I was satisfied I then subsequently drilled a bicortical 3.5 screw proximally in the oblong hole to allow for appropriate sliding of the?distal?radius?plate appropriately to perfect position on the?distal?radius.? This had excellent fixation and purchase and brought the plate to bone.? While maintaining my reduction I then confirmed in multiple orthogonal imaging that my plate was in appropriate position.? Once satisfied with my position I then subsequently placed the [employer] targeting guide on the?distal?locking screws with [employer].? The locking guide was then subsequently loaded and I subsequently drilled and placed a fully threaded cortical screw to compress the plate to bone for the?distal?fracture fragment.? This was performed with plan to then remove this and placed a shorter locking screw had bicortical fixation with excellent purchase and appropriate reduction of my volar tilt and bringing plate to bone of the?distal?fragment and plate.? Once I was satisfied with my plate position as well as reduction of the?distal?radius?which was confirmed on AP oblique and lateral imaging I then subsequently drilled measured and placed 4 locking screws around this cortical screw.? Then I subsequently removed the cortical screw and placed a shorter locking screw that did not penetrate the dorsal cortex.?? This completed my?distal?fixation.? I did utilize mini C arm to confirm appropriate placement of the screws these were all within the?distal?radius?and no joint involvement within the radiocarpal joint or the DRUJ.? These had appropriate subchondral support and maintenance of reduction and fixation of the?distal?radius?fracture.? ?I then turned my attention proximally and then I screwed in the locking guides for my final to screws proximally these were then subsequently drilled measured and appropriate length locking screws were then placed proximally with excellent fixation and locking technology into the plate.? At this point time of the procedure I then subsequently checked the fixation of the oblong screw this had noticeably been loosened and had no purchase fixation so subsequently removed this out it was under this part of the procedure that I had noticed that patient had a nondisplaced fracture going through this communicating into the small area where I had pinned for the K wire for plate placement as well as communicating into the locking screw most proximally in the plate. This nondisplaced crack did propagate just roughly a centimeter and a half proximal to the plate. This must occur while final locking fixation proximally and unfortunately given patient's bone quality and the stress risers had a nondisplaced fracture that communicated longitudinally. This was minimally visible on x-ray. At this point in time this was stable however concern for further fracture propagation. I considered removal of this plate however patient had significant comminution already distally and the screws were already in excellent position and I worried multiple taking in and out of the fixation distally we would lose the reduction and be unable to obtain any fixation further from that point. As a result I left the plate in place. I also considered possibly a dorsal spanning plate however this would severely limit wrist range of motion down the road as well as another surgery and when I laid this up to the distal radius this did not have much fixation proximal to the incomplete fracture site as result do not feel as though this would satisfactorily bridge and fix the nondisplaced fracture site. As a result I then elected to proceed with a dual plate fixation in order to lag this fracture as well as bridge the fracture radius. Given already had excellent exposure of the radius I then extended my incision proximally continued with the modified FCR approach I subsequently dissected out the neurovascular bundle. Once this was fully dissected out had excellent exposure again I confirmed there was no further propagation besides the incomplete fracture longitudinally just at around 1.5 cm. At this point in time I then opened up Arthrex small fragment set. I then selected a [place] 10 hole 2.7 plates. This had excellent plate sizing over the radial column. Again I utilized a periosteal elevator directly to expose the radial column. At this point in time all tendons and neurovascular structures were protected by my imaging assistant. I did place a reduction clamp to hold and compressed the fracture site. At this point in time the plate was then placed and once I was in satisfied position utilizing fluoroscopic imaging I then subsequently lagged through the plate directly from radial to ulnar traversing the fracture site having excellent fracture compression. At this point in time I then subsequently drilled and placed additional cortical screws both proximally and distally to have excellent bone to plate interface and had good plate contouring along the bone. At this point in time once I was satisfied with the bone the plate interface I then placed additional locking screws both proximally and distally. This completed by fixation of the radial column and had excellent bridging of the incomplete fracture pattern. This was able to be bridged with 3 screws proximally, as well as 1 screw lagging the fracture through the plate as well as 3 screws distally. This completed my construct.? The peek guide was subsequently removed and final imaging of the left?distal?radius?open reduction internal fixation was taken of AP lateral as well and is orthogonal imaging.? I then took a inclination view which showed my radial styloid screw was out of the penetration of the joint.? All my?distal?screws were appropriate length did not penetrate dorsal cortex and did not penetrate the joint confirmed with live fluoroscopic imaging.? This completed my fixation.? Smooth wrist range of motion was then noted with no evidence of clicking or crepitus. Wrist was then taken through pronation supination and stressed the DRUJ which was found to be stable.? The wound was then thoroughly irrigated.? Tourniquet was then subsequently deflated.? Hemostasis satisfactory with bipolar electrocautery.? I then subsequently placed interrupted 3-0 Vicryl sutures for subcutaneous tissue and then subsequently placed a nylon the skin for closure.? Incision was then dressed with Xeroform 4 x 4's Kerlix cast padding and a sugar-tong Ortho-Glass splint with goal to prevent pronation supination to avoid any torsional stress on the incomplete fracture site. This Was then applied with Charlie wrap and placed in a sling.? Disposition: Patient taken to PACU in stable condition recovering well receive appropriate discharge instructions as well as pain medication postoperatively.? Maintain splint until follow-up.? Nonweightbearing to operative upper extremity, patient will be allowed weightbearing as tolerated left lower extremity while braces locked in full extension for an additional 3 to 4 weeks to help protect LCL and PLC sprain. Patient may utilize walker with the right upper extremity. Patient will receive appropriate DVT prophylaxis. Will follow-up with Dr. Cody in the office in 2 weeks.? The patient as well as was updated postoperatively about intraoperative findings as well as complication of nondisplaced fracture after plate application and additional plate fixation. Understand agree with current plan. All questions answered. If any questions or concerns feel free to contact the office.
[2024-11-03] MEDS: ondansetron 2 mg/ML SDV 2 mL 4 MG IVP ×2 (16:43→16:54)
[2024-11-03] MEDS: metoclopramide 5 mg/mL SDV 2 mL 10 MG IVP (17:07)
[2024-11-03] MEDS: HYDROcodone-acetaminophen 5-325 mg Tablet 1 TAB PO (17:33)
--- NOTE | 2024-11-03 18:02 | SUR.PHASEII ---
1735 c/o of intermittent nausea and refusing any more nausea meds, drinking soda and eating crackers, at bedside.[id number] Has gotten up to bedside commode and voiding without any difficulties.
--- NOTE | 2024-11-03 18:30 | ANE.PACU2 ---
Inpatient post-anesthesia follow up: Airway intact: Yes Vital signs: Temperature 98 F Pulse Rate 84 Respiratory Rate 17 Blood Pressure 134/75 Pulse Oximetry 94 Oxygen Delivery Me thod Room Air Oxygen Flow Rate 2 Fraction of Inspir ed Oxygen Hydration adequate: Yes Nausea and vomiting: No Pain level: 1 Mental status: Baseline
== END 2024-11-03 18:30 | disposition home or self-care (01) ==
PROVIDERS: PCP Family Medicine; Visit Provider Student in an Organized Health Care Education/Training Program
PROC: (CPT 29870; principal; 2024-11-03 12:05)
PROC: (CPT 25609; 2024-11-03 12:05)
DX: S52.572A Other intraarticular fracture of lower end of left radius, initial encounter for closed fracture (principal); S83.232A Complex tear of medial meniscus, current injury, left knee, initial encounter; S83.272A Complex tear of lateral meniscus, current injury, left knee, initial encounter; M65.962 Unspecified synovitis and tenosynovitis, left lower leg; S83.512A Sprain of anterior cruciate ligament of left knee, initial encounter; M94.262 Chondromalacia, left knee; M79.4 Hypertrophy of (infrapatellar) fat pad; I10 Essential (primary) hypertension; Z79.899 Other long term (current) drug therapy; Z88.0 Allergy status to penicillin; Z88.2 Allergy status to sulfonamides; Z88.8 Allergy status to other drugs, medicaments and biological substances; Z91.048 Other nonmedicinal substance allergy status; Z87.891 Personal history of nicotine dependence; X58.XXXA Exposure to other specified factors, initial encounter
CPT/HCPCS: 25609; 29880; 73100; 76000; C1713; C1734; J0131; J1100; J1885; J2405; J2704; J2765; J3010; J3490; J7030; J9999

== ENCOUNTER → 2024-11-19 13:28 | Outpatient (BNVA) | payer OTHER, SELFPAY | PROVIDERS: PCP Family Medicine; Visit Provider Student in an Organized Health Care Education/Training Program | DX: Z98.890 Other specified postprocedural states (principal); S52.502D Unspecified fracture of the lower end of left radius, subsequent encounter for closed fracture with routine healing; X58.XXXD Exposure to other specified factors, subsequent encounter | CPT/HCPCS: 73110 ==

== ENCOUNTER → 2024-12-03 14:25 | Outpatient (BNVA) | payer BC, SELFPAY | PROVIDERS: PCP Family Medicine; Visit Provider Student in an Organized Health Care Education/Training Program | DX: Z98.890 Other specified postprocedural states (principal); Z87.81 Personal history of (healed) traumatic fracture | CPT/HCPCS: 73110 ==

== ENCOUNTER 2024-12-03 15:46 | Outpatient (CLI) | payer BC, SELFPAY | END 2024-12-03 15:47 | disposition home or self-care (01) | LOC: SPT 15:47 | PROVIDERS: PCP Family Medicine; Visit Provider Student in an Organized Health Care Education/Training Program | DX: Z47.89 Encounter for other orthopedic aftercare (principal); Z98.890 Other specified postprocedural states; Z87.81 Personal history of (healed) traumatic fracture; S52.502D Unspecified fracture of the lower end of left radius, subsequent encounter for closed fracture with routine healing; S89.92XD Unspecified injury of left lower leg, subsequent encounter; S83.242D Other tear of medial meniscus, current injury, left knee, subsequent encounter; S83.282D Other tear of lateral meniscus, current injury, left knee, subsequent encounter; X58.XXXD Exposure to other specified factors, subsequent encounter | CPT/HCPCS: 97760; L1812; L3982 ==

== ENCOUNTER → 2024-12-23 15:03 | Outpatient (BNVA) | payer BC, SELFPAY | PROVIDERS: PCP Family Medicine; Visit Provider Student in an Organized Health Care Education/Training Program | DX: Z98.890 Other specified postprocedural states (principal); Z87.81 Personal history of (healed) traumatic fracture | CPT/HCPCS: 73110 ==

== ENCOUNTER 2024-12-23 15:52 | Outpatient (CLI) | payer BC, SELFPAY | END 2024-12-23 15:53 | disposition home or self-care (01) | LOC: SOT 15:54 | PROVIDERS: PCP Family Medicine; Visit Provider Student in an Organized Health Care Education/Training Program | DX: Z46.89 Encounter for fitting and adjustment of other specified devices (principal); S52.502A Unspecified fracture of the lower end of left radius, initial encounter for closed fracture; X58.XXXA Exposure to other specified factors, initial encounter | CPT/HCPCS: L3908 ==

== ENCOUNTER 2025-01-08 12:52 | Outpatient (RCR) | payer BC, SELFPAY | END 2025-01-29 23:59 | disposition home or self-care (01) | LOC: SPT 12:52 | PROVIDERS: Visit Provider Student in an Organized Health Care Education/Training Program | DX: R53.1 Weakness (principal) | CPT/HCPCS: 97161 ==

== ENCOUNTER 2025-01-08 13:16 | Outpatient (RCR) | payer BC, SELFPAY | END 2025-01-29 23:59 | disposition home or self-care (01) | LOC: SOT 13:16 | PROVIDERS: Visit Provider Student in an Organized Health Care Education/Training Program | DX: S52.502A Unspecified fracture of the lower end of left radius, initial encounter for closed fracture (principal); X58.XXXA Exposure to other specified factors, initial encounter | CPT/HCPCS: 97165 ==

== ENCOUNTER → 2025-01-28 13:34 | Outpatient (BNVA) | payer BC, SELFPAY | PROVIDERS: Visit Provider Student in an Organized Health Care Education/Training Program | DX: Z98.890 Other specified postprocedural states (principal) | CPT/HCPCS: 73110 ==

== ENCOUNTER 2025-04-09 08:44 | Emergency (ER) | payer BC, SELFPAY ==
[2025-04-09 08:56] VITALS: BP 194/85; PULSE 88; RESP 18; O2SAT 96; BMI 31.9
--- NOTE | 2025-04-09 08:57 | CT_ITS ---
WS: [id number] CT HEAD TECHNIQUE: Noncontrast CT of the head obtained from the skullbase to the vertex. CLINICAL INFORMATION: confusion COMPARISON: None. DLP: 1012.[address] scans at [facility] use at least one of these dose optimization techniques: automated exposure control; mA and/or kV adjustment per patient size (includes targeted exams where dose is matched to clinical indication); or iterative reconstruction. FINDINGS: No evidence of intracranial hemorrhage or mass effect. Ventricular system and basal cisterns are patent. Mild small vessel changes with mild parenchymal volume loss. No extra-axial fluid collections. No evidence of mass or mass effect. Vascular calcification Partially visualized paranasal sinus surgery with mild mucosal thickening. Mastoid air cells are well aerated. CT/CT head wo con* [id number] IMPRESSION: 1. No evidence of intracranial hemorrhage or mass effect. 2. No acute intracranial findings.
--- NOTE | 2025-04-09 08:58 | ECG_ITS ---
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
--- NOTE | 2025-04-09 09:06 | W.ED.ALLEREA ---
HPI - Allergic Reaction General: Chief complaint: Allergic Reaction Stated complaint: BP high Memory fuzzy Patient says she feels off Time Seen by Provider: 04/09/25 08:53 Source: patient Mode of arrival: ambulatory Limitations: no limitations History of Present Illness: HPI narrative: 65-year-old female send history of allergic reactions in the past. States that she was exposed to perfume this morning started for like her throat was closing she does have an EpiPen gave herself an EpiPen shot at 730. She states that then shortly after started to feel funny she got hypertensive tachycardic states that she just felt off and does not really remember a 10-minute span of events. States that some of those memories are coming back she states she feels improved but still states she just feels little off she is hypertensive here she denies any chest pain denies any headache has no focal neurodeficits here. Related Data Home Medications ?Medication ?Instructions ?Recorded ?Confirmed calcium glucarate 500 mg capsule 1 tab-cap PO DAILY 03/04/24 04/09/25 coenzyme Q10 75 mg capsule (Ultra 75 mg PO DAILY 03/04/24 04/09/25 CoQ10) glucosamine sulfate 500 mg tablet 500 mg PO DAILY 03/04/24 04/09/25 (Glucosamine) mecobalamin (vitamin B12) 1,000 1,000 mcg PO DAILY 03/04/24 04/09/25 mcg chewable tablet multivitamin 1 tab PO DAILY 03/04/24 04/09/25 lisinopril 20 1 tab PO DAILY 10/31/24 04/09/25 mg-hydrochlorothiazide 25 mg tablet levocetirizine 5 mg tablet 5 mg PO DAILY 04/09/25 04/09/25 omeprazole 40 mg capsule,delayed 40 mg PO QAM 04/09/25 04/09/25 release Previous Rx's ?Medication ?Instructions ?Recorded left volar fast form #1 ea 10/17/24 Left Knee Haskell Brace #1 ea 10/22/24 Hinged Knee Brace #1 ea 12/03/24 Left Wrist Fast Form Splint #1 ea 12/03/24 velcro wrist brace, left #1 ea 12/23/24 albuterol sulfate 90 mcg/actuation 1 - 2 puff inhalation .Q4-6H PRN 02/10/25 aerosol inhaler Shortness Of Breath Or Wheezing #6.7 grams epinephrine 0.3 mg/0.3 mL 0.3 mg (0.3 mL) IM PRN PRN 02/10/25 injection, auto-injector Anaphylaxis #2 ea Allergies Allergy/AdvReac Type Severity Reaction Status Date / Time penicillin V Allergy Severe ALGY-Rash Verified 01/28/25 13:47 Sulfa (Sulfonamide Allergy Mild Unknown Verified 01/28/25 13:47 Antibiotics) chlorhexidine Allergy ALGY-Rash Verified 01/28/25 13:47 isopropyl alcohol (From Allergy ALGY-Rash Verified 01/28/25 13:47 ChloraPrep Clear) PFS ED PFSH: Medical History (Updated 04/09/25 @ 10:27 by Sunny Osborne MD) Osteopenia Environmental allergies [place], bee sting Surgical History History of pilonidal cyst History of appendectomy H/O section S/P surgery on nasal septum Family History Mother Congenital malformation of kidney CLL (chronic lymphocytic leukemia) Glaucoma COPD (chronic obstructive pulmonary disease) Father Hypertension Congestive heart failure (CHF) h/o [place] Brother Graves disease Social History Smoking and tobacco/nicotine status: former use of tobacco/nicotine Alcohol intake: current Alcohol intake frequency: few times a week Substance/Drug Use: never 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 Physical Exam Const: COMMON NORMALS: no acute distress, patient oriented x3 and healthy appearing HENMT: COMMON NORMALS: normocephalic and atraumatic HEAD & SCALP: normocephalic and atraumatic Eye: COMMON NORMALS: conjunctivae normal CONJUNCTIVA: Yes conjunctivae normal Neck/C-Spine: COMMON NORMALS: full ROM and supple Chest: COMMONS NORMALS: normal inspection of the chest Resp: COMMON NORMALS: normal respiratory effort, No retractions, No use of accessory muscles and clear to auscultation bilaterally AUSCULTATION: clear to auscultation bilaterally Cardio: COMMON NORMALS: regular rate, regular rhythm and No murmurs present (Cardio) RATE: regular rate RHYTHM: regular rhythm Extremity: COMMON NORMALS: normal to inspection and full ROM Neuro: COMMON NORMALS: patient oriented x3, moves all extremities and no focal motor deficits CRANIAL NERVES: Yes CN normal except as noted GAIT: Yes Normal gait present MOTOR EXAM: 5/5 motor strength present throughout Psych: COMMON NORMALS: mental status grossly normal, Normal thought process present and cooperative THOUGHT PROCESS: Normal thought process present Skin: COMMON NORMALS: no rashes or lesions noted and no wounds GENERAL SKIN EXAM: no rashes or lesions noted Course Vital Signs: Vital signs: Vital Signs Pulse Rate 74 04/09/25 10:20 Respiratory Rate 17 04/09/25 09:23 Blood Pressure 160/75 04/09/25 10:20 Pulse Oximetry 92 04/09/25 10:20 Oxygen Delivery Me thod Room Air 04/09/25 09:42 MDM - Allergic Reaction Medical Decision Making Patient presents here after having allergic reaction this morning and she gave herself a dose of EpiPen and got tachycardic hypertension and had a period of memory loss for [address] scan here showed no seconds of stroke blood work was normal I do not believe that she had had a stroke at this time. No signs of intracerebral hemorrhage or dissection. Did give her labetalol here she feels much improved currently I believe her symptoms are likely a reaction to the epinephrine pen. Did give her labetalol and her heart rate and blood pressure have improved she is ambulatory stable for discharge she is follow-up with PCP and return if worsening. Medical Records I reviewed the patient's medical records. Lab Data I reviewed the patient's lab results. 04/09/25 09:04 04/09/25 09:[address] 04/09/25 08:57 IMPRESSION: 1. No evidence of intracranial hemorrhage or mass effect. 2. No acute intracranial findings. Laboratory Results WBC 7.04 10^3/uL (3.29-11.43) 04/09/25 09:04 RBC 4.77 10^6/uL (3.85-5.65) 04/09/25 09:04 Hgb 13.20 g/dL (11.27-16.99) 04/09/25 09:04 Hct 45.4 % (36-47) 04/09/25 09:04 MCV 95.2 fl (85-98) 04/09/25 09:04 MCH 27.7 pg (27-33) 04/09/25 09:04 MCHC 29.1 g/dL (30-55) L 04/09/25 09:04 RDW 13.5 % (12.1-15.1) 04/09/25 09:04 Plt Count 281 10^3/cmm (157-399) 04/09/25 09:04 MPV 9.8 fL (7.4-10.4) 04/09/25 09:04 Neut % (Auto) 60.5 % 04/09/25 09:04 Lymph % (Auto) 28.7 % 04/09/25 09:04 [place] % (Auto) 7.0 % 04/09/25 09:04 Eos % (Auto) 2.8 % 04/09/25 09:04 Baso % (Auto) 0.7 % 04/09/25 09:04 Neut # (Auto) 4.26 10^3/uL (1.8-7.7) 04/09/25 09:04 Lymph # (Auto) 2.0 10^3/uL (0.8-4.8) 04/09/25 09:04 [place] # (Auto) 0.5 10^3/uL (0.2-0.9) 04/09/25 09:04 Eos # (Auto) 0.2 10^3/uL (0.0-0.8) 04/09/25 09:04 Baso # (Auto) 0.1 10^3/uL (0.0-0.1) 04/09/25 09:04 Nucleated RBC % (auto) 0 % 04/09/25 09:04 Nucleated RBCs # 0.0 /100WBC 04/09/25 09:04 Sodium 138 mmol/L (136-145) 04/09/25 09:04 Potassium 3.1 mmol/L (3.5-5.1) L 04/09/25 09:04 Chloride 101 mmol/L (98-107) 04/09/25 09:04 Carbon Dioxide 20 mmol/L (22-29) L 04/09/25 09:04 Anion Gap 20.1 (5-19) H 04/09/25 09:04 BUN 17 mg/dL (8-23) 04/09/25 09:04 Creatinine 1.1 mg/dL (0.5-0.9) H 04/09/25 09:04 GFR Calculation 49.8 mL/min (90-130) L 04/09/25 09:04 Glucose 160 mg/dL (65-115) H 04/09/25 09:04 Calculated Osmolality 291 mOsm/kg (285-295) 04/09/25 09:04 Calcium 9.5 mg/dL (8.5-10.5) 04/09/25 09:04 Total Bilirubin 0.3 mg/dL (0.15-1.2) 04/09/25 09:04 AST 22 U/L (0-32) 04/09/25 09:04 ALT 18 U/L (0-33) 04/09/25 09:04 Alkaline Phosphatase 103 U/L (35-105) 04/09/25 09:04 Total Protein 7.1 g/dL (6.6-8.7) 04/09/25 09:04 Albumin 4.0 g/dL (3.5-5.2) 04/09/25 09:04 Globulin 3.1 g/dL (1.3-4.6) 04/09/25 09:04 All radiology interpretation(s) finalized by discharge EKG Data EKG 1: I personally reviewed and interpreted this EKG as follows: EKG interpretation date: 04/09/25 EKG interpretation time: 09:05 Interpretation: nsr hr [address] elevation qrs 92 qtc 403 Discharge Plan Discharge Patient Disposition: Home Clinical Impression: Allergic reaction, Hypertension Condition: Stable Prescriptions: No Action Ultra CoQ10 75 mg capsule 75 mg PO DAILY mecobalamin (vitamin B12) 1,000 mcg tablet,chewable 1,000 mcg PO DAILY glucosamine sulfate [Glucosamine] 500 mg tablet 500 mg PO DAILY Rx Instructions: administer with a meal calcium glucarate 500 mg capsule 1 tab-cap PO DAILY multivitamin Tablet 1 tab PO DAILY (DME) left volar fast form See Rx Instructions .Route .MEDSUPPLY Qty: 1 0RF Rx Instructions: As directed (DME) Left Knee Haskell Brace See Rx Instructions .Route .MEDSUPPLY Qty: 1 0RF Rx Instructions: As directed (DME) Left Wrist Fast Form Splint See Rx Instructions .Route .MEDSUPPLY Qty: 1 0RF Rx Instructions: As directed (DME) Hinged Knee Brace See Rx Instructions .Route .MEDSUPPLY Qty: 1 0RF Rx Instructions: As directed (DME) velcro wrist brace, left See Rx Instructions .Route .MEDSUPPLY Qty: 1 0RF Rx Instructions: As directed epinephrine 0.3 mg/0.3 mL auto-injector 0.3 mg IM PRN PRN (Reason: Anaphylaxis) Qty: 2 0RF albuterol sulfate 90 mcg/actuation HFA aerosol inhaler 1 - 2 puff inhalation .Q4-6H PRN (Reason: Shortness Of Breath Or Wheezing) Qty: 6.7 1RF lisinopril-hydrochlorothiazide 20-25 mg tablet 1 tab PO DAILY omeprazole 40 mg capsule,delayed release(DR/EC) 40 mg PO QAM levocetirizine 5 mg tablet 5 mg PO DAILY Discharge Orders: Discharge ED (Routine); Ordered 04/09/25 Ordered By: Sunny Osborne Discharge Diet: Advance as tolerated Discharge Activity: Resume usual activity Patient Instructions: General Allergic Reaction (ED) Print Language: Azeri Coding Level of Care Code ED Retort [employer]er for Thao Canchola
[2025-04-09 09:12] LABS: Hematocrit 45.4 % (36-47); Hemoglobin 13.20 g/dL (11.27-16.99); Mean Corpuscular HGB Conc 29.1 g/dL (30-55); Mean Corpuscular Hemoglobin 27.7 pg (27-33); Mean Corpuscular Volume 95.2 fl (85-98); Nucleated Red Blood Cells % 0 %; Platelet Count 281 10^3/cmm (157-399); Red Blood Count 4.77 10^6/uL (3.85-5.65); White Blood Count 7.04 10^3/uL (3.29-11.43)
[2025-04-09] MEDS: labetalol 5 mg/mL SDV 20mL 10 MG IVP (09:12)
[2025-04-09 09:23] VITALS: BP 181/91; PULSE 77; RESP 17; O2SAT 92
[2025-04-09 09:32] LABS: Alanine Aminotransferase 18 U/L (0-33); Albumin Level 4.0 g/dL (3.5-5.2); Alkaline Phosphatase 103 U/L (35-105); Anion Gap 20.1 (5-19); Aspartate Amino Transferase 22 U/L (0-32); Blood Urea Nitrogen 17 mg/dL (8-23); Calcium 9.5 mg/dL (8.5-10.5); Carbon Dioxide 20 mmol/L (22-29); Chloride 101 mmol/L (98-107); Creatinine Clr Calc Pharmacy 61.5297; Globulin 3.1 g/dL (1.3-4.6); Glucose 160 mg/dL (65-115); Osmolality Calculated 291 mOsm/kg (285-295); Potassium 3.1 mmol/L (3.5-5.1); Sodium 138 mmol/L (136-145); Total Protein 7.1 g/dL (6.6-8.7)
[2025-04-09 09:42] VITALS: BP 171/84; PULSE 77; O2SAT 92
[2025-04-09 10:20] VITALS: BP 160/75; PULSE 74; O2SAT 92
[2025-04-09 10:35] VITALS: BP 158/96; PULSE 87; O2SAT 97
== END 2025-04-09 10:37 | disposition home or self-care (01) ==
PROVIDERS: Emergency Provider Emergency Medicine
DX: T78.49XA Other allergy, initial encounter (principal); I10 Essential (primary) hypertension; Z87.891 Personal history of nicotine dependence; X58.XXXA Exposure to other specified factors, initial encounter
CPT/HCPCS: 70450; 80053; 85025; 93005; 96374; 99284; J3490

== ENCOUNTER → 2025-06-24 08:36 | Outpatient (BNVA) | payer BC, SELFPAY | PROVIDERS: PCP Family Medicine; Visit Provider Family Medicine | DX: Z00.00 Encounter for general adult medical examination without abnormal findings (principal); Z13.6 Encounter for screening for cardiovascular disorders; Z51.81 Encounter for therapeutic drug level monitoring; E55.9 Vitamin D deficiency, unspecified | CPT/HCPCS: 80053; 80061; 82306; 85025 ==